=== PATIENT | female | born 1950 | race Caucasian/White ===

== ENCOUNTER 2018-02-04 15:37 | Outpatient (CLI) | payer MEDICARE, BC ==
[2018-02-04 17:01] LABS: Anion Gap 15 mmol/L (10-20); BUN (Urea Nitrogen) 19 mg/dL (9.8-20.1); Calc. Creatinine Clearance 0 mL/min (70-130); Carbon Dioxide 23 mmol/L (23-31); Chloride 101 mmol/L (98-107); Estimated GFR-MDRD 56; Glucose 73 mg/dL (80-115); Potassium 3.8 mmol/L (3.5-5.1); Sodium 135 mmol/L (136-145)
== END 2018-02-04 15:38 | disposition home or self-care (01) ==
LOC: LABBT 15:37
PROVIDERS: ATTEND Orthopaedic Surgery Hand Surgery
DX: Z01.818 Encounter for other preprocedural examination (principal); M19.041 Primary osteoarthritis, right hand; M65.311 Trigger thumb, right thumb; M18.0 Bilateral primary osteoarthritis of first carpometacarpal joints
CPT/HCPCS: 80048; 93005; 93010

== ENCOUNTER 2018-02-05 10:01 | Day surgery (SDC) | payer MEDICARE, BC ==
[2018-02-04 10:53] VITALS: BMI 29.5
[2018-02-05] MEDS ORDERED: Dexamethasone 20 MG/5 ML VIAL ONE (12:40)
[2018-02-05] MEDS ORDERED: Lidocaine 1% PF 5 ML VIAL ONE (12:40)
[2018-02-05] MEDS ORDERED: PHENYLEPHRINE-NS 100 MCG/ML 10 ML SYRINGE ONE (12:40)
[2018-02-05] MEDS ORDERED: Ketorolac Tromethamine 30 MG/ML VIAL ONE ×2 (12:40→15:32)
[2018-02-05] MEDS ORDERED: Ondansetron HCl/PF 4 MG/2 ML Vial ONE (12:40)
[2018-02-05] MEDS ORDERED: PROPOFOL 200 MG/20 ML VIAL ONE (12:40)
[2018-02-05] MEDS ORDERED: ePHEDrine/0.9% NaCl/PF SYRINGE 50 mg/10 ml ONE (12:40)
[2018-02-05] MEDS ORDERED: Fentanyl 100 MCG/2 ML VIAL ONE ×3 (13:38→16:12)
[2018-02-05] MEDS ORDERED: Sodium Chloride 0.9% 10 ML ONE (13:43)
[2018-02-05] MEDS ORDERED: Bacitracin Zinc Ointment 30 gm TUBE ONE (13:43)
[2018-02-05] MEDS ORDERED: Bupivacaine PF 0.5% 30 ML VIAL ONE (13:43)
[2018-02-05] MEDS ORDERED: Betamet Acet/Betamet Na Ph 30 MG/5 ML VIAL ONE (13:43)
[2018-02-05] MEDS ORDERED: CEFAZOLIN/Water 2 GM/20 ML SYRINGE ONE ×2 (13:57→13:59)
[2018-02-05] MEDS ORDERED: Midazolam HCl 2 mg/2 ml Vial ONE (14:03)
[2018-02-05] MEDS ORDERED: HYDROcodone/Acetaminophen 7.5/325 mg Tablet ONE (16:52)
--- NOTE | 2018-02-05 19:50 | RAD ---
RADIOGRAPH RIGHT WRIST 3 VIEWS: DATE: 02/05/18 TIME: 1:58 p.m. Submitted for dictation for the first time at 7:20 p.m. HISTORY: 68-year-old female "arthrodesis, scaphoid excision right wrist." COMPARISON: None. FINDINGS: Three small field of view fluoroscopic spot images obtained with C-arm with intrinsically low image r esolution. A ring-shaped metallic marker overlies the fourth CMC, then the triscaphe region. Overlyin g gauze and surgical needles are visualized. IMPRESSION: Ongoing surgery of the wrist. POS: [facility]
--- NOTE | 2018-02-06 08:59 | OP ---
DATE OF PROCEDURE: 02/05/2018 PREOPERATIVE DIAGNOSES: 1. Right carpometacarpal joint arthritis thumb. 2. Right thumb metacarpophalangeal joint ganglion, recurrent. 3. Right ring finger A1 miriam tenosynovitis below the trigger. POSTOPERATIVE DIAGNOSES: 1. Right carpometacarpal joint arthritis thumb. 2. Right thumb metacarpophalangeal joint ganglion, recurrent. 3. Right ring finger A1 miriam tenosynovitis below the trigger. FINDINGS: A 7-8 mm ganglion with cystic fluid inside with the stalk communicating with the direct la teral aspect of the metacarpophalangeal joint. PROCEDURES PERFORMED: 1. Excisional biopsy ganglion in the right thumb metacarpophalangeal joint. 2. Injection, right thumb carpometacarpal joint under fluoroscopic guidance in the operating room. 3. Injection, right ring finger A1 miriam/tenosynovium under the same guidelines. SPECIMENS AND LAB: Mass at the end of right thumb with a stalk. TOTAL TOURNIQUET TIME: 6 minutes. BLOOD LOSS: 10 mL. INDICATIONS: The patient with recurrent mass, along with pain at the sites listed above, which could not respond to conservative treatment. She would like to have one last injection in this area to be sure of the result and that might be best done at a separate time, separate setting. DESCRIPTION OF PROCEDURE: After successful general LMA technique, the limb was prepped and draped. The patient had limb exsanguinated, tourniquet inflated to 250 mmHg pressure. We then outlined the z igzag incision and centered it over the 7 mm mass including the joint line because we felt with this recurrence, it might be a ganglion communicating with the joint. Next, we then biopsied down to the field and under C-arm guidance, we placed wire, 27 needle into the A1 miriam of the ring finger in sa me hand, we performed the injection 1 mL of Celestone 1 mL of Marcaine under C-arm, which proved to b e clinically in the position. Patient had markedly increased smooth motion afterwards. We then turn ed attention to the thumb, metacarpometacarpal joint using the same x-rays, and taking the picture on the floor, we placed a wire tip into the joint and carpometacarpal joint, and then we injected 3 mL of Celestone steroid. Patient then had the tourniquet inflating the ganglion incision which is carrying to skin and s ubcutaneous tissue to identify the mass, it was subcutaneous and surrounded by deep dermal scar tissu e. We excised the scar, the mass and followed the stalk which went into the thumb metacarp ophalangeal joint capsule. We incised the capsule, exposed the joint fluid and then removed the mass . We sent specimen to the lab. All hemostasis was obtained after incision release, the patient had all incisions closed, and then we injected with a total of 20 mL 0.5% Marcaine at all sites. The patient left the operating room with out evidence of anesthetic or operative complication and a soft dressing.
== END 2018-02-05 17:15 | disposition home or self-care (01) ==
LOC: SDC 10:01
PROVIDERS: ATTEND Orthopaedic Surgery Hand Surgery
PROC: 3E0U33Z Introduction of Anti-inflammatory into Joints, Percutaneous Approach (ICD-10-PCS; principal; 2018-02-05)
PROC: 0RBS0ZZ Excision of Right Carpometacarpal Joint, Open Approach (ICD-10-PCS; 2018-02-05)
DX: M67.441 Ganglion, right hand (principal); M18.11 Unilateral primary osteoarthritis of first carpometacarpal joint, right hand; M65.841 Other synovitis and tenosynovitis, right hand; M65.322 Trigger finger, left index finger; I10 Essential (primary) hypertension; G25.81 Restless legs syndrome; D64.9 Anemia, unspecified; E66.3 Overweight; Z68.28 Body mass index [BMI] 28.0-28.9, adult; Z79.899 Other long term (current) drug therapy; Z88.8 Allergy status to other drugs, medicaments and biological substances
CPT/HCPCS: 76001; 88304; 96372; 96374; A4216; J0702; J1100; J1885; J2001; J2250; J2405; J2704; J3010; J3490; S0020

== ENCOUNTER 2018-11-28 00:12 | Outpatient (CLI) | payer MEDICARE, BC ==
[2018-11-28 11:29] LABS: #Basophils 0.1 thou/uL (0.0-0.2); #Eosinphils 0.6 thou/uL (0.0-0.7); #Lymphocytes 2.1 thou/uL (1.20-3.40); #Monocytes 0.6 thou/uL (0.11-0.59); #Neutrophils 3.7 thou/uL (1.40-6.50); %Basophils 0.8 % (0.0-1.0); %Eosinophils 9.2 % (0.0-10.0); %Monocytes 7.9 % (0.0-10.0); %Neutrophils 52.1 % (42.0-75.0); Hemoglobin 12.1 g/dL (12.0-16.0); Mean Corpuscular HGB CONC 33.9 g/dL (32.0-36.0); Mean Corpuscular Hemoglobin 31.7 pg (27.0-31.0); Mean Corpuscular Volume 93.5 fL (78.0-98.0); Mean Platelet Volume 6.6 fL (7.4-10.4); Platelet Count 294 thou/uL (130-400); RBC Distribution Width 12.9 % (11.5-14.5); Red Blood Cell (RBC) Count 3.82 mill/uL (4.20-5.40)
[2018-11-28 11:44] LABS: Anion Gap 14 mmol/L (10-20); BUN (Urea Nitrogen) 17 mg/dL (9.8-20.1); Calc. Creatinine Clearance 0 mL/min (70-130); Calcium 9.9 mg/dL (7.8-10.44); Carbon Dioxide 24 mmol/L (23-31); Chloride 103 mmol/L (98-107); Estimated GFR-MDRD 70; Glucose 101 mg/dL (80-115); Potassium 3.6 mmol/L (3.5-5.1); Sodium 137 mmol/L (136-145)
== END 2018-11-28 00:13 | disposition home or self-care (01) ==
LOC: LABBT 00:12
PROVIDERS: ATTEND Orthopaedic Surgery
DX: Z01.818 Encounter for other preprocedural examination (principal); M23.92 Unspecified internal derangement of left knee
CPT/HCPCS: 80048; 85025; 93005; 93010

== ENCOUNTER → 2018-12-04 | Day surgery (SDC) | payer MEDICARE, BC ==
[2018-11-28 10:10] VITALS: BMI 31.7
--- NOTE | 2018-12-03 09:12 | HP ---
HISTORY OF PRESENT ILLNESS: The patient is a 68-year-old female with approximately a 5-month history of pain and popping in her left knee without specific injury. She has had persistent symptoms despite rest, restriction of activities, and previous cortisone injection. Symptoms are interfering with day-to-day activities. PAST MEDICAL HISTORY: The patient has history of hypertension, restless legs syndrome, and had a previous cardiac stent placed 6 months ago. She has obtained cardiac clearance from her driver guide in [place], [place]. She is normally on Plavix, but she was stopped this one week prior to the anticipated surgery. CURRENT MEDICATIONS: Include: 1. Multivitamins. 2. Metolazone. 3. Omeprazole. 4. Fish oil. 5. Potassium. 6. Rosuvastatin. 7. Spironolactone. 8. Tramadol. 9. Cholestyramine. 10. Plavix. 11. Losartan. 12. Hydrochlorothiazide. 13. Aspirin. ALLERGIES: SHE IS ALLERGIC TO LORTAB WHICH CAUSES NAUSEA AND VOMITING. FAMILY HISTORY: Otherwise unremarkable. SOCIAL HISTORY: Otherwise unremarkable. REVIEW OF SYSTEMS: Otherwise unremarkable. PHYSICAL EXAMINATION: GENERAL: A healthy, heavy-set female. HEENT: Unremarkable. NECK: Supple. CHEST: Clear. HEART: Regular rate and rhythm. ABDOMEN: Soft, nontender. PELVIC, RECTAL, AND BREAST: Exams are deferred. EXTREMITIES: Pertinent findings of the left knee, there is puffiness, but no definite effusion. There is tenderness over the medial joint line and lateral joint line, most marked out medially. 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 Range of motion is 3 to 120 degrees. There is pain with further flexion. Pulses are trace. NEUROVASCULAR: Intact with a slight left antalgic gait. DIAGNOSTIC STUDIES: X-rays of the left knee reveal slight medial joint space narrowing. MRI scan performed in [place], reveals a Randhawa cyst. No distinctive meniscal tear by the radiologist's reading, but by my reading, there appears to be some degeneration of the lateral meniscus and a questionable medial meniscal tear, but I could not tell for sure. IMPRESSION: 1. Internal derangement of left knee. 2. History of hypertension. 3. History of atherosclerotic cardiovascular disease in the past, status post cardiac stenting. PLAN: Arthroscopy of left knee with possible meniscectomy and/or debridement and shaving. The nature of the surgery, length, recovery, and potential complications such as infection, loss of motion, incomplete relief, neurovascular injury, thromboembolic phenomena, progressive degenerative arthritis, recurrent tear, need for additional treatment, repeat surgery have been discussed in detail. Job ID: [id number]
[~2018-12-04] MED LIST: Bupivacaine HCl 0.5%/Epinephrine 1:200,000/PF 30 ml Vial ONE; Bupivacaine/Epinephrine 0.25% 30 ML VIAL ONE; Dexamethasone 20 MG/5 ML VIAL ONE; Fentanyl 100 MCG/2 ML VIAL ONE; HYDROcodone/Acetaminophen 5/325 mg Tablet ONE; Lidocaine 2% PF 5 ML VIAL ONE; Metoclopramide HCl 10 MG/2 ML VIAL ONE; Morphine 2 MG/ML SYRINGE ONE; Morphine 4 MG/ML VIAL ONE; Ondansetron PF 4 MG/2 ML Vial ONE; PHENYLEPHRINE-NS 100 MCG/ML 10 ML SYRINGE ONE; PROPOFOL 200 MG/20 ML VIAL ONE; Scopolamine 1.5 mg/72 hour Patch ONE; ePHEDrine 50 MG/ML VIAL ONE; traMADol HCl 50 MG TAB ONE
--- NOTE | 2018-12-04 13:19 | OP ---
DATE OF PROCEDURE: 12/04/2018 PREOPERATIVE DIAGNOSIS: Internal derangement, left knee. POSTOPERATIVE DIAGNOSES: Medial meniscal tear and mild degenerative joint disease, left knee. PROCEDURE PERFORMED: Arthroscopy of left knee with partial medial meniscectomy. ANESTHESIA: General. OPERATIVE FINDINGS: Examination under anesthesia revealed the knee to be stable. On arthroscopy, there was moderate effusion. There was mild grade 1 and grade 2 chondromalacia of the patella, but no areas needed shaving. There was a complex tear of the posterior horn of the medial meniscus with a large flap component and there was mild degenerative changes of the weightbearing surface of medial femoral condyle and tibial plateau. No areas of exposed bone. ACL was intact. Lateral meniscus was intact. Lateral compartment was normal. DESCRIPTION OF PROCEDURE: After satisfactory anesthesia was induced in supine position, the patient was placed in a leg hale and prepped and draped in the routine manner. The left leg was elevated and exsanguinated with an Esmarch bandage and the tourniquet inflated to 300 mmHg. [employer] arthroscope was introduced through the anterolateral portal, probed through the anteromedial portal and inflow and outflow accomplished through the scope using a [employer] arthroscopy pump. Arthroscopy was carried out and the above findings were noted. All findings were documented with video printer and hard copies were made. Posterior horn of the medial meniscus was debrided with the use of basket forceps and motorized shaver. Intermittently, camera and instruments were interchanged between the anteromedial and anterolateral portal for best visualization. The meniscus was trimmed and saucerized and balanced and probed and found to be stable. There was still an intact rim of 2 to 3 mm. Small amount of the medial femoral condyle was debrided as was the lateral tibial plateau. All compartments were again visualized. No additional pathology was found. The knee was copiously irrigated through the scope and then all instruments were withdrawn. A 20 mL of 0.5% Marcaine with epinephrine was instilled into the knee joint and additional 10 mL injected about the portal sites. Portal sites were closed with 3-0 nylon. A sterile bulky compressive dressing was applied. The tourniquet deflated after 22 minutes. The foot promptly pinked up. The patient was awakened and taken to the recovery room in stable condition. There were no apparent intraoperative complications. Estimated blood loss was negligible. The patient will be discharged home in satisfactory condition, , started on ice and elevation, use of crutches or walker. Home exercise program with Physical Therapy Department. She was given written wound care instructions and prescription for tramadol for pain, 36 tablets with one refill. She will be rechecked in my office in 10 to 14 days or sooner if there are any problems prior to that time. Job ID: [id number]
== END ==
LOC: SDC 05:42
PROVIDERS: ATTEND Orthopaedic Surgery
PROC: 0SBD4ZZ Excision of Left Knee Joint, Percutaneous Endoscopic Approach (ICD-10-PCS; principal; 2018-12-04)
DX: S83.232A Complex tear of medial meniscus, current injury, left knee, initial encounter (principal); M17.12 Unilateral primary osteoarthritis, left knee; M22.42 Chondromalacia patellae, left knee; G25.81 Restless legs syndrome; I10 Essential (primary) hypertension; I25.10 Atherosclerotic heart disease of native coronary artery without angina pectoris; Z79.1 Long term (current) use of non-steroidal anti-inflammatories (NSAID); Z79.02 Long term (current) use of antithrombotics/antiplatelets; Z79.82 Long term (current) use of aspirin; Z79.899 Other long term (current) drug therapy; Z88.5 Allergy status to narcotic agent; Z88.8 Allergy status to other drugs, medicaments and biological substances; Z95.5 Presence of coronary angioplasty implant and graft
CPT/HCPCS: J0131; J0670; J0690; J1100; J2001; J2270; J2405; J2704; J2765; J3010; J3490

== ENCOUNTER 2021-12-06 06:02 | Day surgery (SDC) | payer MEDICARE, BC ==
[2021-12-01 11:45] VITALS: BMI 31.3
[2021-12-06] MEDS ORDERED: Bupivacaine PF 0.5% 30 ML VIAL ONE (06:32)
[2021-12-06] MEDS ORDERED: Bacitracin Zinc Ointment 30 gm TUBE ONE (06:32)
[2021-12-06] MEDS ORDERED: Betamet Acet/Betamet Na Ph 30 MG/5 ML VIAL ONE (06:32)
[2021-12-06] MEDS ORDERED: Neomycin-Polymyxin 1 ML AMP ONE (06:32)
[2021-12-06] MEDS ORDERED: Lidocaine 1% MPF 2 ML VIAL ONE (07:19)
[2021-12-06] MEDS ORDERED: ceFAZolin (BATCH) 2 GM/100 ML BAG ONE (08:06)
[2021-12-06] MEDS ORDERED: Ondansetron PF 4 MG/2 ML Vial ONE (08:15)
[2021-12-06] MEDS ORDERED: PHENYLEPHRINE-NS 100 MCG/ML 10 ML SYRINGE ONE (08:15)
[2021-12-06] MEDS ORDERED: Lidocaine 1% PF 5 ML VIAL ONE (08:15)
[2021-12-06] MEDS ORDERED: PROPOFOL 200 MG/20 ML VIAL ONE (08:15)
[2021-12-06] MEDS ORDERED: Ketorolac Tromethamine 30 MG/ML VIAL ONE (08:15)
[2021-12-06] MEDS ORDERED: Dexamethasone 20 MG/5 ML VIAL ONE (08:15)
[2021-12-06] MEDS ORDERED: Fentanyl 100 MCG/2 ML VIAL ONE (09:09)
[2021-12-06] MEDS ORDERED: HYDROcodone/Acetaminophen 5/325 mg Tablet ONE (10:16)
== END 2021-12-06 11:47 | disposition home or self-care (01) ==
LOC: SDC 06:02
PROVIDERS: ATTEND Orthopaedic Surgery Hand Surgery
PROC: 01N50ZZ Release Median Nerve, Open Approach (ICD-10-PCS; principal; 2021-12-06)
DX: G56.01 Carpal tunnel syndrome, right upper limb (principal); I10 Essential (primary) hypertension; G25.81 Restless legs syndrome; E66.3 Overweight; Z68.31 Body mass index [BMI] 31.0-31.9, adult; Z79.82 Long term (current) use of aspirin; Z79.890 Hormone replacement therapy; Z79.899 Other long term (current) drug therapy; Z95.5 Presence of coronary angioplasty implant and graft
CPT/HCPCS: J0690; J0702; J1100; J1885; J2405; J2704; J3010; S0020